=== PATIENT | male | born 1990 | race African-American/Black ===

== ENCOUNTER 2016-09-12 18:27 | Emergency (ER) | payer OTHER ==
[~2016-09-12] VITALS: Ht 200.7 cm; Wt 136.5 kg
[~2016-09-12 18:27] MED LIST: CYCLOBENZAPRINE10 M1 PO; IBUPROFEN800 M1 PO; MOBIC15 M1 PO; NAPROXEN500 MG PO
[2016-09-12 18:32] VITALS: BP 166/100
--- NOTE | 2016-09-12 18:42 | ED GENERAL ADULT ---
History of Present Illness General Chief Complaint: ETOH/Drug Related Complaint Stated Complaint: " I TOOK A BAD DRUG HAVING A BAD TRIP" Source: patient, family Exam Limitations: intoxication Vital Signs & Intake/Output Vital Signs & Intake/Output Vital Signs Date Time Temp Pulse Resp B/P Pulse O2 O2 Flow FiO2 Ox Delivery Rate 09/12 1832 97.4 82 18 166/100 99 Room Air Allergies Coded Allergies: NO KNOWN ALLERGIES (06/22/16) Reconcile Medications Cyclobenzaprine HCl 10 MG TABLET 1 TAB PO TID PRN MUSCLE SPASM Ibuprofen 800 MG TABLET 1 TAB PO TID PRN PAIN Meloxicam (Mobic) 15 MG TABLET 1 TAB PO DAILY PRN PAIN/INFLAMMATION Naproxen 500 MG TAB 1 TAB PO BID PAIN Triage Note: 25 YEAR OLD MALE STATES THAT HE WAS HANGING OUT WITH A FRIEND AND HE TOOK ACID FOR THE FIRST TIME ABOUT 15-20 MINUTES AGO, FEELS LIKE HE NEEDS AIR, NERVOUS PANICKY Triage Nurses Notes Reviewed? yes HPI: Patient is a 25 year old male presents complaining of a "bad trip". Patient smoked marijuana laced with acid 20 minutes prior to arrival. Patient with visual hallucinations, seeing rainbows and other objects. Feeling anxious. Symptoms are currently severe. Patient's sister denies patient having any aggressive or self destructive behavior. Denies chest pain, dyspnea, trauma, suicidal ideation. (SUNDAY MUÑIZ) Past History Travel History Traveled to [place] past 21 day No Medical History Any Pertinent Medical History? 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 No (SUNDAY MUÑIZ) Review of Systems Review of Systems Constitutional: Denies: chills, fever. EENTM: Reports: visual changes. Respiratory: Reports: no symptoms. Denies: short of breath. Cardiovascular: Denies: chest pain, syncope. GI: Denies: abdominal pain, nausea, vomiting. Genitourinary: Reports: no symptoms. Musculoskeletal: Reports: no symptoms. Skin: Reports: no symptoms. Neurological/Psychological: Reports: see HPI, anxiety. Hematologic/Endocrine: Reports: no symptoms. Immunologic/Allergic: Reports: no symptoms. (SUNDAY MUÑIZ) Physical Exam Physical Exam General Appearance: alert, awake, anxious Head: atraumatic, normal appearance Eyes: Bilateral: normal appearance, PERRL, EOMI. Ears, Nose, Throat: hearing grossly normal Neck: normal inspection, supple, full range of motion Respiratory: normal breath sounds, chest non-tender, no respiratory distress, lungs clear Cardiovascular: regular rate/rhythm (no murmur) Gastrointestinal: soft, non-tender Back: normal inspection, normal range of motion Extremities: normal inspection, normal capillary refill, normal range of motion, no edema Neurologic/Psych: awake, alert, anxious appearing, visual hallucinations. No suicidal or homicidal Skin: intact, normal color, warm/dry Lymphatic: no anterior cervical lora Core Measures ACS in differential dx? No CVA/TIA Diagnosis: No Severe Sepsis Present: No Septic Shock Present: No (SUNDAY MUÑIZ) Progress Differential Diagnoses I considered the following diagnoses in my evaluation of the patient: Polysubstance abuse, medication withdrawal, psychosis, mood disorder, personality disorder. Plan of Care: 1849: Patient refused ativan. Family comfortable taking patient home and monitoring him at home. Patient wants to remain in the ED for observation. 1944: Patient's mother reports that she will take the patient home and monitor him. They were instructed to return immediately if any significant change in behavior(aggressive or self destructive) or worsening of symptoms Initial ED EKG: none (SUNDAY MUÑIZ) Departure Departure Disposition: HOME OR SELF CARE Condition: Stable Clinical Impression Primary Impression: Polysubstance abuse Referrals: VALENTINA VIVAR MD (PCP/Family) Referred to [facility] as new patient No Departure Forms: Customer Survey General Discharge Information (SUNDAY MUÑIZ) PA/STILL PHOTOGRAPHER Co-Sign Statement Statement: ED Attending supervision documentation- [] I saw and evaluated the patient. I have also reviewed all the pertinent lab results and diagnostic results. I agree with the findings and the plan of care as documented in the PA's/STILL PHOTOGRAPHER's documentation. [x] I have reviewed the ED Record and agree with the PA's/STILL PHOTOGRAPHER's documentation. [] Additions or exceptions (if any) to the PAs/STILL PHOTOGRAPHER's note and plan are summarized below: [] (KENIA PALUMBO,STEPHANIE Mckeon) Critical Care Note Critical Care Note Critical Care Time: non-applicable (SHANNA FRAZIER,SUNDAY)
== END 2016-09-12 19:54 ==
LOC: ERH 18:27
DX: F12.10 Cannabis abuse, uncomplicated (principal); F16.10 Hallucinogen abuse, uncomplicated

== ENCOUNTER 2016-11-16 22:23 | Emergency (ER) | payer OTHER ==
[~2016-11-16] VITALS: Ht 200.7 cm; Wt 147.9 kg
[~2016-11-16 22:23] MED LIST changes: -ALLOPURINOL100 M1 PO; -AUGMENTIN 875-1 EACH PO; -LORATADINE10 M1 PO; -PERCOCET 5-3251 EACH PO; -PREDNISONE50 M1 PO; -PROCHLORPERAZIN10 MG PO
[2016-11-16 22:34] VITALS: BP 138/76
--- NOTE | 2016-11-16 23:12 | ED GENERAL ADULT ---
History of Present Illness General Chief Complaint: General Adult Stated Complaint: "MY PORT DOESNT LOOK RIGHT,GOT IT TODAY" Source: patient Exam Limitations: no limitations Vital Signs & Intake/Output Vital Signs & Intake/Output Vital Signs Date Time Temp Pulse Resp B/P Pulse O2 O2 Flow FiO2 Ox Delivery Rate 11/16 2327 Room Air 11/16 2234 97.7 81 18 138/76 98 Room Air ED Intake and Output 11/17 0000 11/16 1200 Intake Total 0 Output Total Balance 0 Intake, Oral 0 Patient 326 lb Weight Allergies Coded Allergies: NO KNOWN ALLERGIES (06/22/16) Reconcile Medications Cyclobenzaprine HCl 10 MG TABLET 1 TAB PO TID PRN MUSCLE SPASM Ibuprofen 800 MG TABLET 1 TAB PO TID PRN PAIN Meloxicam (Mobic) 15 MG TABLET 1 TAB PO DAILY PRN PAIN/INFLAMMATION Naproxen 500 MG TAB 1 TAB PO BID PAIN Triage Note: RECEIVED 25 YO MALE C/O PORTACATH INSERTED IN LEFT UPPER CHEST TODAY HERE AT [facility]. PT HAS LYMPHOMA. DRESSING APPEARS BLOODY. PT WANTS IT EXAMINED AND DRESSING CHANGED AND WANTS INSTRUCTIONS ON HOW TO TAKE CARE OF IT. Triage Nurses Notes Reviewed? yes Onset: Abrupt Duration: day(s): Timing: recent history HPI: 11/16/16 25-year-old male with history of lymphoma. He is status post Port-A-Cath insertion by Dr. Moffett this morning. He was concerned because there was some soilage of blood on the dressing. No shortness of breath, no fever. On physical exam the wound is clean. There is minimal dried blood at the dressing. The dressing was changed. I discussed the case with Dr. Moffett. The patient will follow-up as instructed or return to the emergency department if fever, or shortness of breath or any bleeding from the dressing The onset of the symptoms were abrupt, the duration was just today, the severity was significant; as his symptoms required him to come to the emergency department for care. He denies any associated shortness of breath or fever. Past History Travel History Traveled to [place] past 21 day No Medical History Any Pertinent Medical History? 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 No Review of Systems Review of Systems Constitutional: Denies: fever. EENTM: Reports: no symptoms. Respiratory: Reports: no symptoms. Cardiovascular: Reports: no symptoms. GI: Reports: no symptoms. Genitourinary: Reports: no symptoms. Musculoskeletal: Reports: no symptoms. Skin: Reports: see HPI. Neurological/Psychological: Reports: no symptoms. Hematologic/Endocrine: Reports: bleeding. Immunologic/Allergic: Reports: see HPI. Physical Exam Physical Exam General Appearance: no apparent distress, alert, awake, anxious, mild distress Head: atraumatic, normal appearance Eyes: Bilateral: normal appearance, PERRL, EOMI. Ears, Nose, Throat: normal pharynx, normal ENT inspection Neck: normal inspection, supple Respiratory: normal breath sounds, chest non-tender, no respiratory distress Cardiovascular: regular rate/rhythm Extremities: normal inspection Neurologic/Psych: no motor/sensory deficits, awake, alert, oriented x 3 Skin: normal color Comments: There is a 2 x 2 Wally dressing to the left anterior chest. It was covered with a Tegaderm. There was minimal dried blood on the dressing. Procedure Under sterile technique the left chest wall Port-A-Cath dressing was changed. There was no active bleeding. The patient tolerated the procedure well. I called the patient's surgeon Dr. Moffett. He was aware of the plan of care. Core Measures ACS in differential dx? No CVA/TIA Diagnosis: No Severe Sepsis Present: No Septic Shock Present: No Progress Differential Diagnoses I considered the following diagnoses in my evaluation of the patient: [Wound infection, vascular laceration, pneumothorax, hemothorax,] Plan of Care: Follow up as instructed by his surgeon. Initial ED EKG: none Departure Departure Disposition: HOME OR SELF CARE Condition: Stable Clinical Impression Primary Impression: Visit for wound check Referrals: DANIEL LEONARDO MD (PCP/Family) Departure Forms: Customer Survey General Discharge Information Critical Care Note Critical Care Note Critical Care Time: non-applicable
== END 2016-11-16 23:15 ==
LOC: ERH 22:23
DX: Z48.01 Encounter for change or removal of surgical wound dressing (principal)

== ENCOUNTER → 2016-11-16 | Day surgery (SDC) | payer OTHER ==
[~2016-11-16] VITALS: Ht 200.7 cm; Wt 147.9 kg
[~2016-11-16] MED LIST changes: +ALLOPURINOL100 M1 PO; +AUGMENTIN 875-1 EACH PO; +LORATADINE10 M1 PO; +PERCOCET 5-3251 EACH PO; +PREDNISONE50 M1 PO; +PROCHLORPERAZIN10 MG PO
--- NOTE | 2016-11-16 12:22 | Operative Report ---
Operative/Inv Procedure Report Surgery Date: 11/16/16 Name of Procedure: left subclavian portacath placement with fluorscopic and ultrasound guided guidance Pre-Operative Diagnosis: lymphoma Post-Operative Diagnosis: same Estimated Blood Loss: scant Surgeon/Math Professor: DAX OSULLIVAN,LYNN Stinson Anesthesia: local monitored anesthesi Implants: [employer] Port Operative/Procedure Note Note: After consent, brought to OR and laid supine. Sedation obtained and chest and left neck prepped and draped. Skin in left upper chest infiltrated with local anesthesia. The subclavian vein was difficult to access. Ultrasound was utilized to guide placement. The wire was placed under fluoro to confirm placement in SVC. An incision was made inferiorly to create a pocket. The catheter was measured under fluoro and trimmed to 27cm. The dilater was advanced over the wire under fluoscopy and catheter inserted then sheath removed. Images showed the catheter passing to contralateral subclavian vein. The wire was then replaced in the catheter and repositioned to the SVC. Wire was extracted and port reconnected. Final images show the catheter in SVC atrial junction. Port was flushed with concentrated heparin. The port was anchored to the soft tissue with 0 vicryl and wound closed in layers of vicryl. Sterile dressing applied.
--- NOTE | 2016-11-16 12:43 | RADIOLOGY REPORT ---
EXAMINATION: XR PORTABLE CHEST CLINICAL INFORMATION: Status post Port-A-Cath. Evaluate for pneumothorax. COMPARISON: None TECHNIQUE: Portable AP view of the chest was obtained. FINDINGS: No significant abnormality is noted involving the heart, lungs, mediastinum, bony thorax or soft tissues. Central venous catheter noted with tip in the region of the SVC. No pneumothorax IMPRESSION: Central venous catheter in place. No pneumothorax.
--- NOTE | 2016-11-16 15:47 | RADIOLOGY REPORT ---
EXAMINATION: INTRAOPERATIVE FLUOROSCOPIC GUIDANCE AND CHEST CLINICAL INFORMATION: Left Port-A-Cath placement. COMPARISON: October 2016. TECHNIQUE: Fluoroscopic time was utilized in the OR for Dr. Moffett. Fluoroscopic images were obtained in the AP projection. FINDINGS: Fluoroscopic guidance was provided during placement of a left-sided port. On the final image, the tip overlies the SVC/right atrial junction. FLUOROSCOPY TIME: 2 minutes 16 seconds of fluoroscopic time was utilized for the entirety of this examination. IMPRESSION: Fluoroscopic guidance was provided during placement of a left-sided port. On the final image, the tip overlies the SVC/right atrial junction.
== END ==
LOC: STS 01:27
DX: C83.90 Non-follicular (diffuse) lymphoma, unspecified, unspecified site (principal); F17.200 Nicotine dependence, unspecified, uncomplicated
CPT/HCPCS: C1788; J0690; J2250

== ENCOUNTER 2017-02-05 10:54 | Emergency (ER) | payer OTHER ==
[~2017-02-05] VITALS: Ht 200.7 cm; Wt 147.0 kg
[2017-02-05 11:07] VITALS: BP 1348/72
--- NOTE | 2017-02-05 11:33 | ED THROAT/DENTAL COMPLAINT ---
History of Present Illness General Chief Complaint: Sore Throat, Dental Pain Stated Complaint: " PER PT SORE THROAT FOR 3 WEEKS" Source: patient Exam Limitations: no limitations Vital Signs & Intake/Output Vital Signs & Intake/Output Vital Signs Date Time Temp Pulse Resp B/P B/P Pulse O2 O2 Flow FiO2 Mean Ox Delivery Rate 02/05 1107 98.6 69 16 1348/72 98 Room Air Room Air Allergies Coded Allergies: No Known Allergies (02/05/17) Reconcile Medications Amoxicillin/Potassium Clav (Augmentin 875-125 Tablet) 875 MG-125 MG TABLET 1 TAB PO BID uri Cyclobenzaprine HCl 10 MG TABLET 1 TAB PO TID PRN MUSCLE SPASM Ibuprofen 800 MG TABLET 1 TAB PO TID PRN PAIN Meloxicam (Mobic) 15 MG TABLET 1 TAB PO DAILY PRN PAIN/INFLAMMATION Naproxen 500 MG TAB 1 TAB PO BID PAIN Triage Note: PT TO TRIAGE WITH SORE THROAT AND HACKING COUGH FOR 3 WEEKS. DENIES FEVERS. PT CURRENTLY GETTING CHEMO FOR NON-HODGKINS LYMPHOMA. CURRENTLY GOES EVERY THREE WEEKS Triage Nurses Notes Reviewed? yes Onset: Abrupt Duration: day(s):, constant, continues in ED Timing: recent history Injury Environment: home No Modifying Factors: none HPI: 26-year-old male comes into emergency room for further evaluation of runny nose, nasal congestion, sore throat, loss of voice, cough, no mucus production, fever chills vomiting. Recently diagnosed with lymphoma and currently undergoing chemotherapy every few weeks. His mother is now sick with similar symptoms. Denies any year pain. Some sinus congestion. Denies any other associated symptoms. Past History Travel History Traveled to [place] past 21 day No Medical History Any Pertinent Medical History? 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 No Review of Systems Review of Systems Constitutional: Reports: see HPI. EENTM: Reports: see HPI. Respiratory: Reports: see HPI. Cardiovascular: Reports: no symptoms. GI: Reports: no symptoms. Genitourinary: Reports: no symptoms. Musculoskeletal: Reports: no symptoms. Skin: Reports: no symptoms. Neurological/Psychological: Reports: no symptoms. Hematologic/Endocrine: Reports: no symptoms. Immunologic/Allergic: Reports: no symptoms. All Other Systems: Reviewed and Negative Physical Exam Physical Exam General Appearance: well developed/nourished, no apparent distress, alert Head: atraumatic, normal appearance Eyes: Bilateral: normal appearance. Ears: Bilateral: canal normal. Nose: normal inspection Mouth/Throat: normal mouth inspection, pharynx normal Neck: normal inspection Cardiovascular/Respiratory: regular rate/rhythm, no respiratory distress Back: normal inspection Neurologic/Psych: awake, alert, oriented x 3, normal gait, normal mood/affect Skin: intact, normal color Core Measures ACS in differential dx? No Severe Sepsis Present: No Septic Shock Present: No Progress Differential Diagnosis: aspirated tooth, carious tooth, epiglottitis, Ludwigs angina, meningitis, odontogenic abscess, delia-tonsillar abscess, pharyngeal for. body, stomatitis/gingivitis, strep pharyngitis, tooth fracture, sinusitis, upper respiratory infection, bronchitis, pneumonia, Plan of Care: Orders Procedure Date/time Status THROAT CULTURE W/QUICK STREP 02/06 1108 Active Diagnostic Imaging: Viewed by Me: Radiology Read. Discussed w/RAD: Radiology Read. Radiology Impression: SERVICE DATE: 02/05/17 EXAM TYPE: RAD - XRY-CHEST XRAY, PA AND LATERAL EXAMINATION: XR CHEST CLINICAL INFORMATION: Cough. COMPARISON: Chest done on 11/16/2016. TECHNIQUE: 2 views of the chest were obtained. FINDINGS: Both lung serrato are symmetrically expanded and appear clear. The cardiomediastinal silhouette is within normal limits. There is a left -sided Port-A-Cath present with its tip seen projecting at the distal superior vena cava, unchanged. There is no pleural effusion present. The visualized upper abdomen is unremarkable. IMPRESSION: No acute cardiopulmonary disease. DICTATED BY: HARRISON SHELTON MD DATE/TIME DICTATED:02/05/171153 TANDEM MILL STICKER: GUSTAVO DATE/TIME TRANSCRIBED:02/05/171153 Comments: 02/05/2017 12:52:34 PM Patient clinically looks well. Patient is nontoxic-appearing. Patient is in no apparent distress. Patient is currently in room. Patient instructed to follow- up with oncologist. Covered with antibiotics for possible sinusitis. Seems to be more viral in nature likely. High risk due to chemotherapy so patient is potentially immunocompromise. Better to cover with antibiotics. Follow-up with primary care doctor. Return if any other concerns. Departure Departure Disposition: HOME OR SELF CARE Condition: Stable Clinical Impression Primary Impression: URI (upper respiratory infection) Referrals: DANIEL LEONARDO MD (PCP/Family) Additional Instructions: Take Augmentin as prescribed. Rest. Drink fluids. Motrin as needed. Follow- up with your primary care doctor. Contact your oncologist to make him aware of your symptoms. Return if any other concerns. Please go over all results of today's visit with your primary care doctor. Contact your primary care doctor to let them know you were here in the emergency room. There may be nonspecific findings which may not be related to your visit today here in the emergency room but may require further evaluation and chronic monitoring by your primary care doctor. If you had a laceration today the chance of foreign body always remains. You should follow-up with your primary care doctor for recheck in 3-5 days for a wound check. If you had an x-ray done there is a chance that a fracture could have been missed on initial read and you should follow-up with your primary care doctor for repeat x-rays if symptoms persist. If your blood pressure was elevated here in the emergency room please have rechecked by her primary care doctor within the next 48 hours by your primary care doctor. If you were prescribed a narcotic here in the emergency room or any type of controlled substances you're not allowed to drive while taking this medication or operate any type of heavy machinery. Narcotics can make you feel lightheaded dizziness nausea and can cause constipation. You may need to meat pickler a stool softener. Thank you for choosing [facility] emergency room. Please return to the emergency room immediately if you have any other concerns worsening of symptoms. Departure Forms: Customer Survey General Discharge Information Prescriptions: Current Visit Scripts Amoxicillin/Potassium Clav (Augmentin 875-125 Tablet) 1 TAB PO BID #20 TAB
--- NOTE | 2017-02-05 11:59 | RADIOLOGY REPORT ---
EXAMINATION: XR CHEST CLINICAL INFORMATION: Cough. COMPARISON: Chest done on 11/16/2016. TECHNIQUE: 2 views of the chest were obtained. FINDINGS: Both lung serrato are symmetrically expanded and appear clear. The cardiomediastinal silhouette is within normal limits. There is a left-sided Port-A-Cath present with its tip seen projecting at the distal superior vena cava, unchanged. There is no pleural effusion present. The visualized upper abdomen is unremarkable. IMPRESSION: No acute cardiopulmonary disease.
[2017-02-05] MEDS ORDERED: AUGMENTIN 875-1 EACH PO (12:18)
== END 2017-02-05 12:23 ==
LOC: ERH 10:54
DX: J06.9 Acute upper respiratory infection, unspecified (principal)

== ENCOUNTER 2017-02-26 19:32 | Emergency (ER) | payer OTHER ==
[~2017-02-26] VITALS: Ht 200.7 cm; Wt 106.1 kg
[~2017-02-26 19:32] MED LIST changes: +AUGMENTIN 875-1 EACH PO
[2017-02-26] MEDS ORDERED: LORATADINE10 M1 PO (20:24)
[2017-02-26] MEDS ORDERED: ALLOPURINOL100 M1 PO (20:24)
[2017-02-26] MEDS ORDERED: PROCHLORPERAZIN10 MG PO (20:25)
[2017-02-26] MEDS ORDERED: PREDNISONE50 M1 PO (20:26)
--- NOTE | 2017-02-26 20:37 | ED GENERAL ADULT ---
History of Present Illness General Chief Complaint: General Adult Stated Complaint: PT MOUTH HURT Source: patient Exam Limitations: no limitations Vital Signs & Intake/Output Vital Signs & Intake/Output Vital Signs Date Time Temp Pulse Resp B/P B/P Pulse O2 O2 Flow FiO2 Mean Ox Delivery Rate 02/268 98.3 82 18 132/80 97 Room Air 02/260 97 Room Air 02/266 96.7 71 20 135/79 96 Room Air ED Intake and Output 02/27 0000 02/26 1200 Intake Total Output Total Balance Patient 234 lb Weight Weight Reported by Patient Measurement Method Allergies Coded Allergies: No Known Allergies (02/26/17) Reconcile Medications Allopurinol 100 MG TABLET 3 TAB PO DAILY LUMP IN LEFT UPPER SHOULDER ( Reported) Amoxicillin/Potassium Clav (Augmentin 875-125 Tablet) 875 MG-125 MG TABLET 1 TAB PO BID GUM ABSCESS Loratadine 10 MG TABLET 1 TAB PO DAILY ALLERGIES (Reported) Oxycodone HCl/Acetaminophen (Percocet 5-325 MG Tablet) 5 MG-325 MG TABLET 1 TAB PO BID PRN PAIN Prednisone 50 MG TABLET 1 TAB PO AD POST CHEMO TX (Reported) Prochlorperazine Maleate 10 MG TABLET 1 TAB PO DAILY NAUSEA (Reported) Triage Note: TRIAGE: PT TO ER C/C THROBBING PAIN TO RT SIDE OF MOUTH X 2 DAYS. +SWELLING. PT CURRENTLY RECEIVING CHEMO FOR NONHODGKINS LYMPHOMA, HAS IT EVERY 3 WEEKS. HAD IT LAST ON 02/15/2017. Triage Nurses Notes Reviewed? yes Onset: Gradual Duration: constant Timing: recent history Severity: severe Severity Numbers: 7 HPI: Patient is a 26-year-old male with a past medical history of non-Hodgkin's lymphoma who currently is receiving chemotherapy who presents emergency room with a 2 day history of concerns of a posterior lower RIGHT gum swelling and tenderness. Patient denies any mechanism of injury. Denies any fever chills is able tolerate by mouth denies any shortness of breath (JOSSY JOSEPH) Past History Travel History Traveled to [place] past 21 day No Medical History Any Pertinent Medical History? 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 No (JOSSY JOSEPH) Review of Systems Review of Systems Constitutional: Reports: no symptoms. EENTM: Reports: see HPI. Respiratory: Reports: no symptoms. Cardiovascular: Reports: no symptoms. GI: Reports: no symptoms. Genitourinary: Reports: no symptoms. Musculoskeletal: Reports: no symptoms. Skin: Reports: no symptoms. Neurological/Psychological: Reports: no symptoms. Hematologic/Endocrine: Reports: no symptoms. Immunologic/Allergic: Reports: no symptoms. All Other Systems: Reviewed and Negative (JOSSY JOSEPH) Physical Exam Physical Exam General Appearance: no apparent distress, alert Head: atraumatic Comments: Well-developed well-nourished person in no acute distress HEENT: extraocular motion intact, no nystagmus. Pupils equally round and reactive to light and accommodation. Nose is atraumatic. External auditory canal and Tympanic membranes clear. Pharynx normal. No swelling or edema. Neck: Supple, no lymphadenopathy, normal range of motion without pain or tenderness Back: Nontender, no CVA tenderness. Extremity: No edema, no calf tenderness to palpation, normal and equal pulses. Neuro: Alert oriented x3, motor sensory normal, Skin: No appreciable rash on exposed skin, skin is warm and dry. Psych: Mood and affect is normal, memory and judgment is normal. Core Measures ACS in differential dx? No CVA/TIA Diagnosis: No Severe Sepsis Present: No Septic Shock Present: No Diagram Mouth: 1) Noted 1 cm localized swelling and point tenderness no active discharge no active bleeding No trismus noted no pharyngeal swelling no exudates (JOSSY JOSEPH) Progress Differential Diagnoses I considered the following diagnoses in my evaluation of the patient: [Gum abscess, peritonsillar abscess, sepsis, Carlos angina] Plan of Care: On examination patient has concerns of SUSPECTING GUM abscess however patient declines aspiration OR incision when offered discussed disposition plan with Dr. Eaton who agrees. Patient was strongly advised to begin Augmentin and to follow up with dentist and to follow up this week with oncologist Upon discharge patient looks well was able tolerate by mouth afebrile no trismus Initial ED EKG: none (JOSSY JOSEPH) Departure Departure Disposition: HOME OR SELF CARE Condition: Stable Clinical Impression Primary Impression: Gum abscess Referrals: DANIEL LEONARDO MD (PCP/Family) Additional Instructions: As discussed begin the prescription of Augmentin as directed for the full course begin the prescription of Percocet for pain. Per discussions waiting a [facility] pharmacy. Begin using warm saltwater gargling for your symptoms. If symptoms worsen or if he develop any new concerning symptom return to emergency room immediately. In 2 days if no better, Call the The list of dentists provided to you and let your oncologist know of your symptoms. Departure Forms: Customer Survey General Discharge Information Prescriptions: Current Visit Scripts Amoxicillin/Potassium Clav (Augmentin 875-125 Tablet) 1 TAB PO BID #20 TAB Oxycodone HCl/Acetaminophen (Percocet 5-325 MG Tablet) 1 TAB PO BID PRN PAIN #10 TAB (JOSSY JOSEPH) PA/BECK TENDER Co-Sign Statement Statement: ED Attending supervision documentation- [x] I saw and evaluated the patient. I have also reviewed all the pertinent lab results and diagnostic results. I agree with the findings and the plan of care as documented in the PA's/BECK TENDER's documentation. [] I have reviewed the ED Record and agree with the PA's/BECK TENDER's documentation. [] Additions or exceptions (if any) to the PAs/BECK TENDER's note and plan are summarized below: [] (SHAMEKA OSULLIVAN,BILLY Pederson) Critical Care Note Critical Care Note Critical Care Time: non-applicable (JOSSY JOSEPH)
[2017-02-26] MEDS ORDERED: AUGMENTIN 875-1 EACH PO (21:46)
[2017-02-26] MEDS ORDERED: PERCOCET 5-3251 EACH PO (21:46)
[2017-02-26 21:58] VITALS: BP 132/80
== END 2017-02-26 21:58 ==
LOC: ERH 19:32
DX: K05.20 Aggressive periodontitis, unspecified (principal); Z72.0 Tobacco use

== ENCOUNTER → 2018-02-16 | Day surgery (SDC) | payer OTHER ==
[~2018-02-16] VITALS: Ht 200.7 cm; Wt 110.7 kg
[~2018-02-16] MED LIST changes: +ALLOPURINOL100 M1 PO; +LORATADINE10 M1 PO; +PERCOCET 5-3251 EACH PO; +PREDNISONE50 M1 PO; +PROCHLORPERAZIN10 MG PO
--- NOTE | 2018-02-16 15:06 | Operative Report ---
Operative/Inv Procedure Report Surgery Date: 02/16/18 Name of Procedure: Right inguinal lymph node biopsy Pre-Operative Diagnosis: Recurrent lymphoma Post-Operative Diagnosis: Same Estimated Blood Loss: scant Surgeon/Sports Analyst: See Moffett MD Anesthesia: laryngeal mask airway Specimens: Solitary lymph node Operative Indication: 27-year-old male status post treatment of B-cell lymphoma presented with recurrent disease. Core biopsy of neck node was nondiagnostic. Operative/Procedure Note Note: After consent is brought to the operating was supine. General anesthesia was obtained and his abdomen was prepped and draped. Skin overlying the inguinal region was after local anesthesia and a diagonal incision made just above the inguinal crease. We came down this obtains tissues with cautery. The Leesa's fascia was divided. The inguinal structures were seen superiorly and we Just below them. Self-retaining retractor was then placed. The wound was explored digitally. There was a solitary large somewhat firm lymph node measuring 1.5 cm. No other lymph nodes are palpable. A suture was placed in it to facilitate dissection. It was in circumference dissected with cautery and clip ligation of lymphatic vessels. This passed off the field and sent for fresh analysis. The wound was irrigated with saline. Incision was then closed in 2 layers of 3-0 and 4-0 Vicryl sutures. Steri-Strips and sterile dressing applied. Sponge and needle counts are correct CC: Yuliet OSULLIVAN,Darin
== END ==
LOC: STS 02-14 03:58
DX: R59.0 Localized enlarged lymph nodes (principal); Z85.72 Personal history of non-Hodgkin lymphomas; Z92.21 Personal history of antineoplastic chemotherapy; M79.669 Pain in unspecified lower leg; F17.200 Nicotine dependence, unspecified, uncomplicated; E66.9 Obesity, unspecified; Z68.39 Body mass index [BMI] 39.0-39.9, adult
CPT/HCPCS: 88184; J0690; J2250; J3490